=== PATIENT | male | born 1955 | race Caucasian/White ===

== ENCOUNTER 2020-02-04 10:25 | Emergency (ER) | payer OTHER, MEDICARE, SELFPAY ==
--- NOTE | ~2020-02-04 | XR_ITS ---
EXAMINATION: XR chest 2V DATE: 02/04/2020 11:06 INDICATION: 3 weeks of improving cough now with fatigue and fever. TECHNIQUE: PA and lateral views of the chest were obtained. COMPARISON: None FINDINGS: The lungs are clear with no focal airspace opacities, pulmonary edema, pleural effusion or pneumothor ax. The cardiomediastinal silhouette is normal. Mild thoracic spondylosis. Prominent bilateral anteri or subacromial spurs. IMPRESSION: 1. No acute cardiopulmonary disease. Reviewed, dictated and finalized at location A.
[2020-02-04 10:30] VITALS: BP 118/83; PULSE 85; RESP 20; TEMP 36.8; O2SAT 96
--- NOTE | 2020-02-04 10:34 | ED.GENADULT ---
HPI - General Adult General Chief complaint: Upper Respiratory Infection Stated complaint: FEVER Time Seen by Provider: 02/04/20 10:43 Source: patient and RN notes reviewed Mode of arrival: ambulatory Limitations: clinical condition History of Present Illness HPI narrative: This is a 64 years old male presents to the office for an evaluation of feeling run down for three week. Associated with feeling lightheaded. Symptoms began with cough and congestion; which has improved with zpack after his doctor called it in for him. He completed zpack on Thursday and same night he develops fever. Fever went up to 101. Denies sick contact at home. States, he supposed to go back to work on Thursday; but his work place won't let him until he has Covid testing. Related Data Home Medications Medication Instructions Recorded Confirmed meloxicam 7.5 mg tablet 7.5 mg PO DAILY 12/18/19 sildenafil 50 mg tablet See Rx Instructions .ROUTE .COMPLEX 12/18/19 simvastatin 80 mg tablet 80 mg PO .COMPLEX 12/18/19 tamsulosin 0.4 mg capsule See Rx Instructions .ROUTE .COMPLEX 12/18/19 Allergies Allergy/AdvReac Type Severity Reaction Status Date / Time No Known Allergies Allergy Verified 02/04/20 10:38 Review of Systems Review of Systems: Narrative: CONSTITUTIONAL:Reports fever; mostly at night time. ENT: Denies sore throat or ears pain CARDIOVASCULAR: Denies chest pain RESPIRATORY: Reports cough at beginning of illness; but not currently GASTROINTESTINAL: Denies abdominal pain, nausea, vomiting, diarrhea. GENITOURINARY: Denies urinary symptoms SKIN: Denies rash MUSCULOSKELETAL: Denies acute back pain NEUROLOGIC: Reports lightheaded with position changes PMFSH Past Medical History Medical History BPH (benign prostatic hyperplasia) Erectile dysfunction HLD (hyperlipidemia) Hypertension Family History Family History Father Hypertension, Onset Age: 73 Family history of cardiovascular disease, Onset Age: 73 Social History Social History (Updated 02/04/20 @ 11:08 by CLAUDIA Means) Social History: used to smoke ack; quite in 2014 Smoking status: Former smoker Smoking end date: 11/09/13 Alcohol intake: never Comments At time of signature, I agree with nursing past medical, surgical, social and family history. There is no relevant family history pertinent to the presenting complaint. Exam Narrative: Exam Narrative: GENERAL: This is a well-nourished, well-developed patient, in no apparent distress. EYES: PERRL. EMOI. EARS: External ears normal, auditory canals clear and without drainage, TMs normal without perforation. Hearing grossly intact. NOSE: External nose normal with no obvious nasal discharge, nares without redness, no rhinorrhea. THROAT: Mucous membranes moist, posterior pharynx clear. NECK: Neck supple, non-tender without lymphadenopathy, masses or thyromegaly. CARDIOVASCULAR: Regular rate and rhythm without murmurs, gallops, or rubs. RESPIRATORY:Diminish throughout. Breath sounds equal bilaterally. No wheezes, rales, or rhonchi. GASTROINTESTINAL: Abdomen soft, non-tender, nondistended. Bowel sounds are active. No hepato-splenomegaly, or palpable masses. No guarding. SKIN: warm, intact with no suspicious lesions or rash, good texture and turgor. NEURO: awake, alert, and oriented to person, place and time. There were no obvious focal neurologic abnormalities. Steady gait Princess Coma Scale Eye Opening: Spontaneous 4 Princess Coma Scale Motor: Obeys Commands 6 Princess Coma Scale Verbal: Oriented 5 Course Vital Signs Vital signs: Vital Signs Temperature 98.3 F 02/04/20 10:30 Pulse Rate 85 02/04/20 10:30 Respiratory Rate 20 02/04/20 10:30 Blood Pressure 118/83 02/04/20 10:30 Pulse Oximetry 96 02/04/20 10:30 Temperature 98.3 F 02/04/20 10:30 Pulse Rate
[2020-02-04 11:13] VITALS: BP 124/79; PULSE 75
[2020-02-04 11:14] VITALS: BP 111/77; BP 94/66; PULSE 77; PULSE 79
== END 2020-02-04 11:30 | disposition home or self-care (01) ==
PROVIDERS: Emergency Provider Nurse Practitioner; PCP Emergency Medicine
DX: R53.83 Other fatigue (principal); E86.0 Dehydration; Z87.891 Personal history of nicotine dependence; N40.0 Benign prostatic hyperplasia without lower urinary tract symptoms; E78.5 Hyperlipidemia, unspecified; I10 Essential (primary) hypertension
CPT/HCPCS: 71046; 99213; G0463

== ENCOUNTER 2020-02-05 13:54 | Emergency (ER) | payer OTHER, MEDICARE, SELFPAY ==
[2020-02-05 13:58] VITALS: BP 143/89; PULSE 72; RESP 18; TEMP 36.6; O2SAT 99
--- NOTE | 2020-02-05 14:24 | ED.GENADULT ---
HPI - General Adult General Chief complaint: Unspecified <Arvind Garland PA-C - Last Filed: 02/05/20 15:51> Stated complaint: NOT FEELING WELL <AYAAN Lopez Last Filed: 02/05/20 15:51> Time Seen by Provider: 02/05/20 14:12 <AYAAN Lopez Last Filed: 02/05/20 15:51> Source: patient <AYAAN Lopez Last Filed: 02/05/20 15:51> Mode of arrival: ambulatory <AYAAN Lopez Last Filed: 02/05/20 15:51> Limitations: no limitations <AYAAN Lopez Last Filed: 02/05/20 15:51> History of Present Illness HPI narrative: Patient is a 64-year-old male who presents with over a weeks duration of upper respiratory symptoms was seen by primary care finished his Z-Anatoly that was prescribed prior Thursday patient had been having congestion rhinorrhea and cough as his predominant symptoms with fevers off and on. Patient notes that he has now developed loose stools over the last 3 days. Patient was seen at urgent care yesterday had negative chest radiograph. Patient on arrival to emergency department today notes that he feels fatigued but denies any pain or vomiting. Patient denies any sick contacts or high risk exposures <Arvind Garland PA-C - Last Filed: 02/05/20 15:51> Related Data Home medications: Home Medications Medication Instructions Recorded Confirmed meloxicam 7.5 mg tablet 7.5 mg PO DAILY PRN 12/18/19 02/04/20 simvastatin 80 mg tablet 80 mg PO .COMPLEX 12/18/19 02/04/20 metoprolol succinate PO 02/05/20 omeprazole 20 mg PO DAILY 02/05/20 02/05/20 tamsulosin mg PO 02/05/20 <AYAAN Lopez Last Filed: 02/05/20 15:51> Allergies/adverse reactions: Allergies Allergy/AdvReac Type Severity Reaction Status Date / Time No Known Allergies Allergy Verified 02/04/20 10:38 <AYAAN Lopez Last Filed: 02/05/20 15:51> Review of Systems Review of Systems: All systems reviewed & are unremarkable except as noted in HPI and below <Arvind Garland PA-C - Last Filed: 02/05/20 15:51> [facility] Past Medical History Medical History: Medical History BPH (benign prostatic hyperplasia) Erectile dysfunction HLD (hyperlipidemia) Hypertension <Arvind Garland PA-C - Last Filed: 02/05/20 15:51> Family History Family History: Family History Father Hypertension, Onset Age: 73 Family history of cardiovascular disease, Onset Age: 73 <Arvind Garland PA-C - Last Filed: 02/05/20 15:51> Social History Social History: Social History Social History: used to smoke 2pack; quite in 2014 Smoking status: Former smoker Smoking end date: 11/09/13 Alcohol intake: never <Arvind Garland PA-C - Last Filed: 02/05/20 15:51> Exam Narrative: Exam Narrative: GENERAL: Well-appearing, well-nourished, and in no acute distress. HEAD: Normocephalic, atraumatic. EYES: PERRLA and EOMI. ENT: Nares clear, no rhinorrhea or epistaxis. Mucous membranes moist. Oropharynx without tonsillar hypertrophy exudate or other lesions. NECK: Supple. No adenopathy or masses. CHEST: Clear to auscultation. No respiratory distress. No wheezes rales or rhonchi HEART: Regular rate and rhythm. No murmur heard. Normal peripheral pulses. ABDOMEN: Soft, nontender, nondistended EXTREMITIES: Normal range of motion. No edema. SKIN: Warm, dry, no rash. NEURO: No focal deficits. Alert and oriented x3. Cranial nerves II through XII grossly intact PSYCH: Normal mood and affect. <Arvind Garland PA-C - Last Filed: 02/05/20 15:51> Course Course Emergency Course: Patient in the room at this time resting comfortably afebrile nontoxic-appearing normal vital signs unsure as to the cause of his fatigue could be related to the upper respiratory
[2020-02-05 14:41] LABS: Basophils Percent Auto 0.6 % (0.2-1.2); Hematocrit 44.2 % (42.0-52.0); Immature Granulocyte Absolute 0.03 K/mm3 (0.00-0.031); Immature Granulocyte Percent A 0.8 % (0-0.5); Lymphocytes Absolute Auto 0.89 K/mm3 (0.9-3.2); Lymphocytes Percent Auto 25.1 % (18.3-44.2); Mean Corpuscular HGB Conc 33.9 g/dl (32-36); Mean Corpuscular Hemoglobin 29.6 pg (26-34); Mean Corpuscular Volume 87.2 fl (80-100); Mean Platelet Volume 12.1 fl (7.4-10.4); Monocytes Absolute Auto 0.3 K/mm3 (0.1-0.6); Neutrophils Absolute Auto 2.3 K/mm3 (1.3-6.7); Neutrophils Percent Auto 64.5 % (45.5-73.1); Platelet Count Result 140 k/mm3 (150-375); Red Blood Count 5.07 M/mm3 (4.6-6.20); White Blood Count 3.5 K/mm3 (4.5-10.0)
[2020-02-05 14:42] LABS: Add Urine Microscopic? NO; Appearance Urine Clear (Clear); Bilirubin Urine Negative (Negative); Blood Urine Negative (Negative); Color Urine Straw (Yellow); Glucose Urine UA Negative (Negative); Ketones Urine Negative (Negative); Leukocyte Esterase Ur Negative LEU/UL (Negative); Nitrate Urine Negative (Negative); Protein Urine Negative (Negative); Specific Grav Ur 1.006 (1.001-1.035); Urobilinogen Urine Negative mg/dL (<2.0)
[2020-02-05 15:28] LABS: Alanine Aminotransferase 41 U/L (4-50); Albumin Level 3.7 g/dL (3.5-5.1); Alkaline Phosphatase 91 U/L (38-126); Aspartate Amino Transferase 54 U/L (17-59); Bilirubin,Total 0.3 mg/dL (0.2-1.3); Blood Urea Nitrogen 18 mg/dL (9-20); Calcium 8.2 mg/dL (8.4-10.2); Carbon Dioxide 26 mmol/L (22-30); Chloride 99 mmol/L (98-107); Estimated CRCL calculation 57 ml/min; Estimated Glomerular Filt Rate 55; Glucose 91 mg/dL (75-110); Potassium 4.2 mmol/L (3.4-5.0); Sodium 133 mmol/L (137-145)
== END 2020-02-05 16:20 | disposition home or self-care (01) ==
PROVIDERS: Emergency Medicine Emergency Medical Services; Emergency Provider Emergency Medicine; PCP Emergency Medicine
DX: J06.9 Acute upper respiratory infection, unspecified (principal); N40.0 Benign prostatic hyperplasia without lower urinary tract symptoms; E78.5 Hyperlipidemia, unspecified; I10 Essential (primary) hypertension; N52.9 Male erectile dysfunction, unspecified; Z87.891 Personal history of nicotine dependence
CPT/HCPCS: 36415; 80053; 81003; 85025; 87804; 96374; 99284; J0131

== ENCOUNTER → 2021-01-24 11:42 | Outpatient (CLI) | payer MEDICARE, SELFPAY ==
--- NOTE | ~2021-01-24 | CT_ITS ---
EXAMINATION:CT lung screening DATE: 01/24/2021 11:57 INDICATION: Personal history of tobacco dependence. Smoker who quit 6 years ago with 66 pack year his tory. TECHNIQUE: Computed tomography (CT) of the chest was performed without intravenous contrast. Automate d exposure control and iterative reconstruction technique were employed. The dose-length product (DLP ) was 127.12 mGy-cm. COMPARISON: CT abdomen and pelvis 06/21/2017 FINDINGS: There is mild emphysema. Calcified right lung nodules and calcified right hilar lymph nodes are consistent with old granulomatous disease. There is a cluster of nodules in right middle lobe me asuring up to 4 mm. No pleural effusion. The heart size is normal. There are coronary artery calcific ations. No pericardial effusion. There are cysts in right kidney measuring up to 6.0 cm. There are ch anges of cholecystectomy. There is moderate thoracic spondylosis. IMPRESSION: 1. Lung-RADS category 2: Benign appearance or behavior. Continue annual screening with noncontrast lo w-dose chest CT in 12 months. Reviewed, dictated and finalized at location A. IMPRESSION: 1. Lung-RADS category 2: Benign appearance or behavior. Continue annual screeni ng with noncontrast low-dose chest CT in 12 months.
== END ==
PROVIDERS: PCP Emergency Medicine; Visit Provider Emergency Medicine
DX: Z12.2 Encounter for screening for malignant neoplasm of respiratory organs (principal); Z87.891 Personal history of nicotine dependence
CPT/HCPCS: 71271

== ENCOUNTER → 2022-01-22 07:41 | Outpatient (CLI) | payer MEDICARE, SELFPAY ==
--- NOTE | ~2022-01-22 | US_ITS ---
EXAMINATION: US aorta [facility] DATE: 01/22/2022 08:06 INDICATION: Abdominal aortic aneurysm screening with risk factors of hypertension, hypercholesterolem ia and prior smoking TECHNIQUE: Grayscale, color Doppler, and pulsed Doppler images of the aorta and common iliac arteries were obtained. COMPARISON: None. FINDINGS: The proximal aorta measures 2.9 cm in AP diameter. The mid aorta measures 2.0 cm. The distal aorta me asures 2.4 cm. The right common iliac artery measures 1.2 cm. The left common iliac artery measures 0 .9 cm. IMPRESSION: 1. Normal caliber abdominal aorta Reviewed, dictated and finalized at location A.
== END ==
PROVIDERS: PCP Registered Nurse; Visit Provider Registered Nurse
DX: F17.211 Nicotine dependence, cigarettes, in remission (principal)
CPT/HCPCS: 76706

== ENCOUNTER → 2022-01-28 11:51 | Outpatient (CLI) | payer MEDICARE, SELFPAY ==
--- NOTE | ~2022-01-28 | CT_ITS ---
Corrected Report See bolded text for corrections to Indication 01/28/2022 J EXAMINATION: CT lung screening DATE: 01/28/2022 12:05 INDICATION: Personal history of tobacco dependence. Smoker who quit 7 years ago. TECHNIQUE: Computed tomography (CT) of the chest was performed without intravenous contrast. The dose-length product was 167.27 mGy-cm. Automated exposure control and iterative reconstruction technique were employed. COMPARISON: CT dated 01/24/2021 FINDINGS: No thoracic lymphadenopathy. No significant pleural or pericardial effusion. There is atherosclerosis of the aorta and coronary arteries. No aneurysm. Heart size normal. There are bilateral renal cysts. There is mild emphysema. Stable cluster of right middle lobe nodules measuring 4 mm or less. There are a few calcified granulomas of the right lung. No pneumothorax. No endobronchial lesions. No new pulmonary nodules or masses. Mild thoracic spondylosis. IMPRESSION: 1. Lung-RADS category 2: Benign appearance or behavior. Continue annual screening with noncontrast low-dose chest CT in 12 months. Reviewed, dictated and finalized at location A. MTDD IMPRESSION: 1. Lung-RADS category 2: Benign appearance or behavior. Continue annual screeni ng with noncontrast low-dose chest CT in 12 months.
== END ==
PROVIDERS: Visit Provider Registered Nurse
DX: Z12.2 Encounter for screening for malignant neoplasm of respiratory organs (principal); F17.211 Nicotine dependence, cigarettes, in remission
CPT/HCPCS: 71271